=== PATIENT | female | born 1980 | race African-American/Black ===

== ENCOUNTER 2017-02-10 13:09 | Emergency (ER) | payer OTHER ==
[~2017-02-10] VITALS: Ht 167.6 cm; Wt 67.7 kg
[2017-02-10 13:10] VITALS: BP 126/86
--- NOTE | 2017-02-10 15:00 | REP ---
Right hand four views: There are no comparisons. There is no radio-opaque foreign body. Mineralization and joint spaces are normal. There is no fracture or dislocation. There are no calcifications. Impression: Negative right hand. Signed by Cali Laboy MD 02/10/2017 02:51 P
== END 2017-02-10 15:21 | disposition home or self-care (01) ==
LOC: M ED 13:09
DX: S60.511A Abrasion of right hand, initial encounter (principal); S51.811A Laceration without foreign body of right forearm, initial encounter; W20.8XXA Other cause of strike by thrown, projected or falling object, initial encounter; Y92.008 Other place in unspecified non-institutional (private) residence as the place of occurrence of the external cause; Y99.9 Unspecified external cause status; Y93.9 Activity, unspecified; Z88.8 Allergy status to other drugs, medicaments and biological substances

== ENCOUNTER 2017-04-25 17:07 | Emergency (ER) | payer OTHER, SELFPAY ==
[~2017-04-25] VITALS: Ht 167.6 cm; Wt 60.0 kg
[2017-04-25] MEDS ORDERED: levETIRAcetam INJection 1,000 MG in D5W 100 ML IV ONE (18:00)
[2017-04-25 18:07] LABS: CONTROL LINE HCG INT CTR LINE PRESENT
[2017-04-25 18:12] LABS: BASO % 0.3 % (0.0-1.0); EOS % 0.2 % (0.0-3.0); IMMATURE GRANULOCYTE % 0.3 % (0-0); LYMPH # 1.7 10^3/uL (1.5-4.5); LYMPH % 17.6 % (24.0-44.0); MEAN CORPUSCULAR HEMOGLOBIN 33.3 pg (27.0-33.0); MEAN CORPUSCULAR HGB CONC 34.7 g/dl (32.0-36.5); MEAN CORPUSCULAR VOLUME 96.1 fl (80.0-96.0); MONO % 9.9 % (0.0-5.0); NEUTROPHILS # 6.9 10^3/uL (1.8-7.7); NEUTROPHILS % 71.7 % (36.0-66.0); PLATELET COUNT, AUTOMATED 281 10^3/uL (150-450); RED CELL DISTRIBUTION WIDTH 13.2 % (11.5-14.5); WHITE BLOOD COUNT 9.6 10^3/uL (4.0-10.0)
[2017-04-25 18:22] LABS: ALBUMIN 3.8 GM/DL (3.2-5.2); ALBUMIN/GLOBULIN RATIO 1.19 (1.00-1.93); ALKALINE PHOSPHATASE 60 U/L (45-117); ALT/SGPT 16 U/L (12-78); ANION GAP 10 MEQ/L (8-16); AST/SGOT 12 U/L (15-37); BILIRUBIN,DIRECT 0.2 MG/DL (0.0-0.2); BILIRUBIN,TOTAL 0.7 MG/DL (0.2-1.0); BLOOD UREA NITROGEN 9 MG/DL (7-18); CALCIUM LEVEL 9.2 MG/DL (8.5-10.1); CARBON DIOXIDE LEVEL 26 MEQ/L (21-32); CHLORIDE LEVEL 105 MEQ/L (98-107); CREATININE FOR GFR 0.63 MG/DL (0.55-1.02); GLOMERULAR FILTRATION RATE > 60.0 (>60); GLUCOSE, FASTING 81 MG/DL (70-105); SODIUM LEVEL 141 MEQ/L (136-145)
--- NOTE | 2017-04-25 18:50 | REPUSA ---
CT of the head Clinical history: injury. Comparison: 01/16/2015. Technique: Multiple axial CT images were obtained through the head without administration of contrast . Findings: The ventricles and sulci are symmetric bilaterally. There is no evidence of acute hemorrhag e or infarct. There is no midline shift, mass effect, or extra-axial fluid collection. The osseous st ructures are unremarkable. The visualized paranasal sinuses and mastoid air cells are clear. Impression: Negative study.
[2017-04-25 18:51] LABS: POTASSIUM SERUM 2.6 MEQ/L (3.5-5.1)
[2017-04-25] MEDS ORDERED: ISOVUE-370 76% 100ML VIAL (Q9967) As Ordered ONE (19:06)
[2017-04-25] MEDS ORDERED: POTASSIUM CHLORIDE 10 MEQ SR TABLET PO ONE (19:15)
[2017-04-25 19:18] LABS: MAGNESIUM LEVEL 1.8 MG/DL (1.8-2.4)
--- NOTE | 2017-04-25 19:22 | REP ---
REASON: Seizure. COMPARISON: 12/31/2014. FINDINGS: The technique utilized in obtaining the radiograph has magnified the cardiac silhouette and accentuated the interstitial markings. The superior mediastinal structures are midline. The cardiac silhouette is unremarkable in size, shape, and position. The diaphragmatic surfaces of the lungs are regular, and the costophrenic angles are clear. The pulmonary guerrero are clear. The imaged osseous structures are intact. IMPRESSION: There is no acute cardiopulmonary disease. Signed by Humberto Sprague DO 04/25/2017 07:43 P
[2017-04-25] MEDS ORDERED: KCL 10MEQ IN 100ML SWI (KRUN) 10 MEQ in APPROPRIATE DILUENT 1 EA IV ONE ×2 (19:30)
--- NOTE | 2017-04-25 20:00 | REPUSA ---
CT angiogram of the chest Clinical statement: hemoptysis. Technique: Multiple axial CT images were obtained from the thoracic inlet through the upper abdomen a fter a bolus administration of nonionic intravenous contrast. Coronal and sagittal reconstructions we re also obtained. No comparison is available. Findings: The pulmonary arteries are well-opacified with contrast, with no intraluminal filling defec ts to suggest embolism. The thoracic aorta is unremarkable. Thyroid gland is within normal limits. Th ere is no thoracic lymphadenopathy. There are no pericardial or pleural effusions. The lungs are jose r. Limited imaging of the upper abdomen is unremarkable. There are no suspicious osseous lesions. Impression: Unremarkable CT examination of the chest. No evidence of pulmonary embolism.
--- NOTE | 2017-04-25 20:00 | REPUSA ---
CT of the abdomen and pelvis with contrast Clinical statement: hemoptysis. Technique: Multiple axial CT images were obtained from the base of the lungs through the floor of the pelvis utilizing 5 mm axial slices after administration of nonionic intravenous contrast. Coronal an d sagittal reconstructions were also obtained. No comparison is available. Findings: Chest: The visualized lung bases are clear. Abdomen: The liver, spleen, pancreas, kidneys, gallbladder, and adrenal glands are unremarkable. The aorta is within normal limits. There is no evidence of abdominal lymphadenopathy or ascites. Pelvis: The bowel is unremarkable, with no obstructive or inflammatory changes. The appendix is ari l. The urinary bladder is within normal limits. There is a simple left ovarian cyst measuring 2.5 x 1 .4 cm. The other pelvic structures appear grossly intact. There is no evidence of pelvic lymphadenopa thy or ascites. Bones: There are no suspicious osseous abnormalities seen. Impression: 1. The kidneys, renal collecting systems, and urinary bladder appear grossly unremarkable. 2. Simple left ovarian cyst. 3. No obstructive or inflammatory bowel changes.
[2017-04-25] MEDS ORDERED: POTA20TA FT (21:14)
[2017-04-25] MEDS ORDERED: LEVE750XR PO (21:29)
[2017-04-25 21:35] VITALS: BP 94/58
--- NOTE | 2017-04-26 05:48 | ECGEPIP ---
Stationary ECG Study [facility] - ED Test Date: 2017-04-25 Pat Name: OLGA ROSE Department: Room: - Gender: F Metal Cutter: rn : 1980 Requested By: Jing Sargent Order Number: [id number] Reading MD: Filipe Stanford Measurements Intervals [place] Rate: 61 P: 33 IN: 172 QRS: -24 QRSD: 90 T: 17 QT: 427 QTc: 431 Interpretive Statements SINUS RHYTHM BORDERLINE LEFT AXIS DEVIATION SIMILAR TO 01/16/15 Electronically Signed On 04-26-2017 5:47:46 EDT by Filipe Stanford
== END 2017-04-25 21:51 | disposition home or self-care (01) ==
LOC: M ED 17:07
DX: R56.9 Unspecified convulsions (principal); S30.0XXA Contusion of lower back and pelvis, initial encounter; X58.XXXA Exposure to other specified factors, initial encounter; Y92.89 Other specified places as the place of occurrence of the external cause; Y93.89 Activity, other specified; Y99.8 Other external cause status; Z91.19 Patient's noncompliance with other medical treatment and regimen; E87.6 Hypokalemia; Z88.8 Allergy status to other drugs, medicaments and biological substances
CPT/HCPCS: 70450; 71010; 71275; 74177; 80048; 80076; 82550; 82553; 83690; 83735; 84703; 85025; 93005; 96374; 96375; 99284; G0480; J1953; Q9967

== ENCOUNTER → 2017-08-26 | Outpatient (REF) | payer OTHER ==
[2017-08-26 15:01] LABS: LITHIUM LEVEL 0.44 MEQ/L (0.60-1.20)
== END ==
LOC: M LAB REF 13:31
DX: Z51.81 Encounter for therapeutic drug level monitoring (principal); Z79.899 Other long term (current) drug therapy
CPT/HCPCS: 80178

== ENCOUNTER → 2017-09-05 | Outpatient (CLI) | payer OTHER | LOC: M RAD 13:24 | DX: H57.12 Ocular pain, left eye (principal) | CPT/HCPCS: 70200 ==

== ENCOUNTER → 2018-02-24 | Outpatient (REF) | payer OTHER | LOC: M LAB REF 09:33 | DX: K52.9 Noninfective gastroenteritis and colitis, unspecified (principal) | CPT/HCPCS: 87507 ==

== ENCOUNTER 2018-02-26 10:12 | Inpatient (IN) | payer OTHER ==
[2018-02-26] MEDS: NS 1,000 ML IV ×2 (11:18→18:37)
[2018-02-26 11:20] LABS: HEMATOCRIT 36.4 % (36.0-47.0); HEMOGLOBIN 12.4 g/dl (12.0-15.5); MEAN CORPUSCULAR HEMOGLOBIN 30.5 pg (27.0-33.0); MEAN CORPUSCULAR HGB CONC 34.1 g/dl (32.0-36.5); MEAN CORPUSCULAR VOLUME 89.4 fl (80.0-96.0); PLATELET COUNT, AUTOMATED 393 10^3/uL (150-450); RED BLOOD COUNT 4.07 10^6/uL (4.00-5.40); RED CELL DISTRIBUTION WIDTH 12.6 % (11.5-14.5); WHITE BLOOD COUNT 7.1 10^3/uL (4.0-10.0)
[2018-02-26 11:24] LABS: POSITIVE MORPH POS FLAG
[2018-02-26 11:25] LABS: ADD MANUAL DIFFER YES; DIFF SLIDE NUMBER 225
[2018-02-26] MEDS: KETOROLAC 30 MG/ML VIAL (J1885) IV (11:25)
[2018-02-26 11:34] LABS: INR 1.03; PROTHROMBIN TIME 13.6 SECONDS (12.1-14.4)
[2018-02-26 11:36] LABS: CONTROL LINE HCG INT CTR LINE PRESENT; HCG, SERUM QUALITATIVE NEGATIVE (NEGATIVE)
[2018-02-26 11:48] LABS: ALBUMIN 3.3 GM/DL (3.2-5.2); ALKALINE PHOSPHATASE 68 U/L (45-117); ALT/SGPT 17 U/L (12-78); AMYLASE 20 U/L (25-115); ANION GAP 8 MEQ/L (8-16); AST/SGOT 8 U/L (7-37); BILIRUBIN,DIRECT < 0.1 MG/DL (0.0-0.2); BILIRUBIN,TOTAL 0.3 MG/DL (0.2-1.0); BLOOD UREA NITROGEN 6 MG/DL (7-18); CARBON DIOXIDE LEVEL 27 MEQ/L (21-32); CHLORIDE LEVEL 103 MEQ/L (98-107); CREATININE FOR GFR 0.87 MG/DL (0.55-1.30); EOSINOPHILS 5 % (0-5); GLOMERULAR FILTRATION RATE > 60.0 (>60); GLUCOSE, FASTING 96 MG/DL (70-100); LIPASE 56 U/L (73-393); LYMPHOCYTES 21 % (16-52); MONOCYTES 3 % (0-8); NEUTROPHILS 71 % (35-75); PLATELET ESTIMATE NORMAL (NORMAL); POTASSIUM SERUM 3.5 MEQ/L (3.5-5.1); SODIUM LEVEL 138 MEQ/L (136-145); TOTAL PROTEIN 7.4 GM/DL (6.4-8.2)
[2018-02-26 11:50] LABS: LACTIC ACID SEPSIS PROTOCOL 1.8 MMOL/L (0.4-2.0)
[2018-02-26] MEDS: ONDANSETRON 4MG/2ML VIAL (J2405) IV (13:32)
[2018-02-26] MEDS: MORPHINE 4 MG/ML 1ML VIAL/SYRINGE (J2270) IV ×2 (13:32→18:45)
[2018-02-26] MEDS: metroNIDAZOLE 500 MG in APPROPRIATE DILUENT 1 EA IV (17:30)
[2018-02-26] MEDS ORDERED: METOCLOPRAMIDE 10 MG TAB PO (18:00)
[2018-02-26] MEDS ORDERED: MIRALAX POWDER 255 GM BTL (POLYETHYLENE GLYCOL) PO (18:15)
[2018-02-26] MEDS: PRAZOSIN 1 MG CAP PO (21:00)
[2018-02-26] MEDS: MIRALAX POWDER 255 GM BTL (POLYETHYLENE GLYCOL) PO (22:00)
[2018-02-26] MEDS: OLANZapine 5 MG TAB PO (22:10)
[2018-02-26] MEDS: POTASSIUM CHLORIDE 10 MEQ SR TABLET PO (22:13)
[2018-02-26] MEDS: hydrOXYzine 50 MG TAB PO (22:15)
[2018-02-26] MEDS: levETIRAcetam 250MG TABLET (KEPPRA) PO (22:15)
[2018-02-26] MEDS: CIPROFLOXACIN 400 MG in APPROPRIATE DILUENT 1 EA IV (22:20)
[2018-02-27] MEDS: metroNIDAZOLE 500 MG in APPROPRIATE DILUENT 1 EA IV ×3 (02:50→17:45)
[2018-02-27] MEDS: MORPHINE 4 MG/ML 1ML VIAL/SYRINGE (J2270) IV ×2 (06:24→13:35)
[2018-02-27 07:38] LABS: HEMATOCRIT 30.5 % (36.0-47.0); MEAN CORPUSCULAR HEMOGLOBIN 30.3 pg (27.0-33.0); MEAN CORPUSCULAR HGB CONC 32.8 g/dl (32.0-36.5); MEAN CORPUSCULAR VOLUME 92.4 fl (80.0-96.0); PLATELET COUNT, AUTOMATED 346 10^3/uL (150-450); RED CELL DISTRIBUTION WIDTH 12.8 % (11.5-14.5); WHITE BLOOD COUNT 6.4 10^3/uL (4.0-10.0)
[2018-02-27 07:50] LABS: ANION GAP 5 MEQ/L (8-16); BLOOD UREA NITROGEN 7 MG/DL (7-18); CALCIUM LEVEL 8.1 MG/DL (8.5-10.1); CARBON DIOXIDE LEVEL 27 MEQ/L (21-32); CHLORIDE LEVEL 107 MEQ/L (98-107); CREATININE FOR GFR 0.77 MG/DL (0.55-1.30); GLOMERULAR FILTRATION RATE > 60.0 (>60); GLUCOSE, FASTING 85 MG/DL (70-100); POTASSIUM SERUM 3.7 MEQ/L (3.5-5.1); SODIUM LEVEL 139 MEQ/L (136-145)
[2018-02-27] MEDS: OMEPRAZOLE 20 MG CAP PO (08:55)
[2018-02-27] MEDS: CIPROFLOXACIN 400 MG in APPROPRIATE DILUENT 1 EA IV ×2 (08:55→21:08)
[2018-02-27] MEDS: levETIRAcetam 250MG TABLET (KEPPRA) PO ×2 (08:55→21:11)
[2018-02-27] MEDS: NS 1,000 ML IV (08:56)
[2018-02-27] MEDS: POTASSIUM CHLORIDE 10 MEQ SR TABLET PO ×2 (08:56→21:11)
[2018-02-27] MEDS ORDERED: levETIRAcetam 250MG TABLET (KEPPRA) PO (09:00)
[2018-02-27] MEDS ORDERED: ENOXAPARIN 40 MG/0.4 ML SYRINGE (J1650) SC (09:00)
[2018-02-27] MEDS ORDERED: LIDOCAINE 2% INJ 100 MG/5 ML SDV (FOR ANES.) As Ordered ×2 (10:55→12:21)
[2018-02-27] MEDS ORDERED: PROPOFOL 200 MG/20 ML VIAL As Ordered ×2 (10:55→12:21)
[2018-02-27] MEDS ORDERED: FLEET ENEMA PR (12:00)
[2018-02-27 13:11] LABS: HEMATOCRIT 30.1 % (36.0-47.0); HEMOGLOBIN 9.8 g/dl (12.0-15.5); MEAN CORPUSCULAR HEMOGLOBIN 29.8 pg (27.0-33.0); MEAN CORPUSCULAR HGB CONC 32.6 g/dl (32.0-36.5); MEAN CORPUSCULAR VOLUME 91.5 fl (80.0-96.0); PLATELET COUNT, AUTOMATED 325 10^3/uL (150-450); RED BLOOD COUNT 3.29 10^6/uL (4.00-5.40); RED CELL DISTRIBUTION WIDTH 12.8 % (11.5-14.5); WHITE BLOOD COUNT 5.4 10^3/uL (4.0-10.0)
[2018-02-27] MEDS: MESALAMINE 400 MG CAPSULE DELAYED RELEASE (DELZICOL) PO ×2 (16:31→21:10)
[2018-02-27 18:34] LABS: HEMATOCRIT 31.9 % (36.0-47.0); HEMOGLOBIN 10.3 g/dl (12.0-15.5); MEAN CORPUSCULAR HEMOGLOBIN 30.1 pg (27.0-33.0); MEAN CORPUSCULAR HGB CONC 32.3 g/dl (32.0-36.5); MEAN CORPUSCULAR VOLUME 93.3 fl (80.0-96.0); PLATELET COUNT, AUTOMATED 384 10^3/uL (150-450); RED BLOOD COUNT 3.42 10^6/uL (4.00-5.40); WHITE BLOOD COUNT 6.6 10^3/uL (4.0-10.0)
[2018-02-27 18:54] LABS: ERYTHROCYTE SEDIMENTATION RATE 43 mm/hr (0-20)
[2018-02-27 19:20] LABS: C REACTIVE PROTEIN QUANTITATIV 8.11 MG/DL (0.00-0.30)
[2018-02-27] MEDS: MESALAMINE 1,000 MG SUPP PR ×2 (21:00→21:11)
[2018-02-27] MEDS: PRAZOSIN 1 MG CAP PO (21:00)
[2018-02-27] MEDS: OLANZapine 5 MG TAB PO (21:11)
[2018-02-28 00:27] LABS: HEMATOCRIT 30.6 % (36.0-47.0); HEMOGLOBIN 10.1 g/dl (12.0-15.5); MEAN CORPUSCULAR VOLUME 90.8 fl (80.0-96.0); PLATELET COUNT, AUTOMATED 373 10^3/uL (150-450); RED BLOOD COUNT 3.37 10^6/uL (4.00-5.40); RED CELL DISTRIBUTION WIDTH 12.6 % (11.5-14.5); WHITE BLOOD COUNT 6.4 10^3/uL (4.0-10.0)
[2018-02-28] MEDS: hydrOXYzine 50 MG TAB PO ×2 (02:26→21:03)
[2018-02-28] MEDS: NS 1,000 ML IV ×2 (02:48→21:04)
[2018-02-28] MEDS: metroNIDAZOLE 500 MG in APPROPRIATE DILUENT 1 EA IV ×3 (02:48→17:00)
[2018-02-28 06:00] LABS: HEMATOCRIT 29.3 % (36.0-47.0); HEMOGLOBIN 9.6 g/dl (12.0-15.5); MEAN CORPUSCULAR HEMOGLOBIN 30.4 pg (27.0-33.0); MEAN CORPUSCULAR HGB CONC 32.8 g/dl (32.0-36.5); MEAN CORPUSCULAR VOLUME 92.7 fl (80.0-96.0); PLATELET COUNT, AUTOMATED 355 10^3/uL (150-450); RED BLOOD COUNT 3.16 10^6/uL (4.00-5.40); RED CELL DISTRIBUTION WIDTH 12.8 % (11.5-14.5); WHITE BLOOD COUNT 5.6 10^3/uL (4.0-10.0)
[2018-02-28 06:17] LABS: ANION GAP 6 MEQ/L (8-16); BLOOD UREA NITROGEN 3 MG/DL (7-18); CALCIUM LEVEL 8.2 MG/DL (8.5-10.1); CARBON DIOXIDE LEVEL 28 MEQ/L (21-32); CHLORIDE LEVEL 110 MEQ/L (98-107); CREATININE FOR GFR 0.65 MG/DL (0.55-1.30); GLOMERULAR FILTRATION RATE > 60.0 (>60); GLUCOSE, FASTING 93 MG/DL (70-100); POTASSIUM SERUM 4.1 MEQ/L (3.5-5.1); SODIUM LEVEL 144 MEQ/L (136-145)
[2018-02-28] MEDS: MORPHINE 4 MG/ML 1ML VIAL/SYRINGE (J2270) IV ×2 (08:54→18:12)
[2018-02-28] MEDS: MESALAMINE 400 MG CAPSULE DELAYED RELEASE (DELZICOL) PO ×3 (09:45→20:52)
[2018-02-28] MEDS: OMEPRAZOLE 20 MG CAP PO (09:46)
[2018-02-28] MEDS: levETIRAcetam 250MG TABLET (KEPPRA) PO ×2 (09:46→20:50)
[2018-02-28] MEDS: POTASSIUM CHLORIDE 10 MEQ SR TABLET PO ×2 (09:46→20:51)
[2018-02-28] MEDS: CIPROFLOXACIN 400 MG in APPROPRIATE DILUENT 1 EA IV ×2 (09:47→20:53)
[2018-02-28] MEDS: predniSONE 50 MG TAB PO (12:19)
[2018-02-28] MEDS ORDERED: NS 500 ML IV (15:15)
[2018-02-28] MEDS ORDERED: MIDODRINE 2.5 MG TAB PO (16:00)
[2018-02-28] MEDS: ONDANSETRON 4MG/2ML VIAL (J2405) IV (20:50)
[2018-02-28] MEDS: OLANZapine 5 MG TAB PO (20:51)
[2018-02-28] MEDS: PRAZOSIN 1 MG CAP PO (21:00)
[2018-02-28] MEDS: MESALAMINE 1,000 MG SUPP PR (21:00)
[2018-03-01] MEDS: metroNIDAZOLE 500 MG in APPROPRIATE DILUENT 1 EA IV ×3 (02:43→17:06)
[2018-03-01] MEDS: NS 500 ML IV (05:00)
[2018-03-01] MEDS: MORPHINE 4 MG/ML 1ML VIAL/SYRINGE (J2270) IV ×3 (05:24→20:23)
[2018-03-01 06:35] LABS: HEMATOCRIT 27.6 % (36.0-47.0); MEAN CORPUSCULAR HEMOGLOBIN 30.5 pg (27.0-33.0); MEAN CORPUSCULAR HGB CONC 32.6 g/dl (32.0-36.5); MEAN CORPUSCULAR VOLUME 93.6 fl (80.0-96.0); PLATELET COUNT, AUTOMATED 358 10^3/uL (150-450); RED BLOOD COUNT 2.95 10^6/uL (4.00-5.40); RED CELL DISTRIBUTION WIDTH 12.8 % (11.5-14.5); WHITE BLOOD COUNT 6.8 10^3/uL (4.0-10.0)
[2018-03-01 06:53] LABS: ANION GAP 5 MEQ/L (8-16); BLOOD UREA NITROGEN 2 MG/DL (7-18); CALCIUM LEVEL 7.7 MG/DL (8.5-10.1); CARBON DIOXIDE LEVEL 26 MEQ/L (21-32); CHLORIDE LEVEL 114 MEQ/L (98-107); CREATININE FOR GFR 0.57 MG/DL (0.55-1.30); GLOMERULAR FILTRATION RATE > 60.0 (>60); GLUCOSE, FASTING 121 MG/DL (70-100); POTASSIUM SERUM 4.2 MEQ/L (3.5-5.1); SODIUM LEVEL 145 MEQ/L (136-145)
[2018-03-01] MEDS: CIPROFLOXACIN 400 MG in APPROPRIATE DILUENT 1 EA IV ×2 (08:41→20:24)
[2018-03-01] MEDS: predniSONE 50 MG TAB PO (08:41)
[2018-03-01] MEDS: POTASSIUM CHLORIDE 10 MEQ SR TABLET PO ×2 (08:41→20:25)
[2018-03-01] MEDS: levETIRAcetam 250MG TABLET (KEPPRA) PO ×2 (08:41→20:24)
[2018-03-01] MEDS: MESALAMINE 400 MG CAPSULE DELAYED RELEASE (DELZICOL) PO ×3 (08:41→20:23)
[2018-03-01] MEDS: OMEPRAZOLE 20 MG CAP PO (08:41)
[2018-03-01] MEDS: NS 1,000 ML IV (09:30)
[2018-03-01] MEDS: hydrOXYzine 50 MG TAB PO (20:24)
[2018-03-01] MEDS: OLANZapine 5 MG TAB PO (20:24)
[2018-03-01] MEDS: MESALAMINE 1,000 MG SUPP PR (20:25)
[2018-03-01] MEDS: PRAZOSIN 1 MG CAP PO (21:00)
[2018-03-02] MEDS: metroNIDAZOLE 500 MG in APPROPRIATE DILUENT 1 EA IV ×3 (02:09→17:38)
[2018-03-02 06:15] LABS: HEMATOCRIT 30.2 % (36.0-47.0); HEMOGLOBIN 9.9 g/dl (12.0-15.5); MEAN CORPUSCULAR HEMOGLOBIN 29.9 pg (27.0-33.0); MEAN CORPUSCULAR HGB CONC 32.8 g/dl (32.0-36.5); MEAN CORPUSCULAR VOLUME 91.2 fl (80.0-96.0); PLATELET COUNT, AUTOMATED 427 10^3/uL (150-450); RED BLOOD COUNT 3.31 10^6/uL (4.00-5.40); RED CELL DISTRIBUTION WIDTH 12.9 % (11.5-14.5); WHITE BLOOD COUNT 8.1 10^3/uL (4.0-10.0)
[2018-03-02 06:27] LABS: ANION GAP 7 MEQ/L (8-16); BLOOD UREA NITROGEN 3 MG/DL (7-18); CALCIUM LEVEL 8.4 MG/DL (8.5-10.1); CARBON DIOXIDE LEVEL 25 MEQ/L (21-32); CHLORIDE LEVEL 114 MEQ/L (98-107); CREATININE FOR GFR 0.62 MG/DL (0.55-1.30); GLOMERULAR FILTRATION RATE > 60.0 (>60); GLUCOSE, FASTING 87 MG/DL (70-100); POTASSIUM SERUM 3.7 MEQ/L (3.5-5.1); SODIUM LEVEL 146 MEQ/L (136-145)
[2018-03-02] MEDS: NS 1,000 ML IV (07:23)
[2018-03-02 07:50] LABS: C REACTIVE PROTEIN QUANTITATIV 1.56 MG/DL (0.00-0.30)
[2018-03-02] MEDS: CIPROFLOXACIN 400 MG in APPROPRIATE DILUENT 1 EA IV ×2 (09:27→20:44)
[2018-03-02] MEDS: POTASSIUM CHLORIDE 10 MEQ SR TABLET PO ×2 (09:28→20:44)
[2018-03-02] MEDS: methylPREDNISolone INJ 125 MG/2 ML VIAL (J2930) IV (09:28)
[2018-03-02] MEDS: OMEPRAZOLE 20 MG CAP PO (09:28)
[2018-03-02] MEDS: levETIRAcetam 250MG TABLET (KEPPRA) PO ×2 (09:28→20:44)
[2018-03-02] MEDS: MORPHINE 4 MG/ML 1ML VIAL/SYRINGE (J2270) IV ×3 (09:42→22:06)
[2018-03-02] MEDS: MESALAMINE 400 MG CAPSULE DELAYED RELEASE (DELZICOL) PO ×3 (09:43→20:44)
[2018-03-02 11:25] LABS: HEPATITIS B SURFACE ANTIBODY POSITIVE (POSITIVE)
[2018-03-02 11:34] LABS: HEPATITIS B SURFACE ANTIGEN NEGATIVE (NEGATIVE)
[2018-03-02] MEDS: MESALAMINE 1,000 MG SUPP PR (20:36)
[2018-03-02] MEDS: PRAZOSIN 1 MG CAP PO ×2 (20:36→20:44)
[2018-03-02] MEDS: OLANZapine 5 MG TAB PO (20:44)
[2018-03-02] MEDS: hydrOXYzine 50 MG TAB PO (20:45)
[2018-03-03 00:07] LABS: ANTI-SACCHAROMYCES CEREV. IgA <20.0 Units (0.0-24.9); ANTI-SACCHAROMYCES CEREV. IgG <20.0 Units (0.0-24.9); HEPATITIS B CORE ANTIBODY IGG Negative (Negative)
[2018-03-03] MEDS: metroNIDAZOLE 500 MG in APPROPRIATE DILUENT 1 EA IV ×4 (02:49→17:58)
[2018-03-03 06:28] LABS: HEMATOCRIT 26.7 % (36.0-47.0); HEMOGLOBIN 8.9 g/dl (12.0-15.5); MEAN CORPUSCULAR HEMOGLOBIN 30.2 pg (27.0-33.0); MEAN CORPUSCULAR HGB CONC 33.3 g/dl (32.0-36.5); MEAN CORPUSCULAR VOLUME 90.5 fl (80.0-96.0); PLATELET COUNT, AUTOMATED 422 10^3/uL (150-450); RED BLOOD COUNT 2.95 10^6/uL (4.00-5.40); RED CELL DISTRIBUTION WIDTH 13.1 % (11.5-14.5); WHITE BLOOD COUNT 9.6 10^3/uL (4.0-10.0)
[2018-03-03 06:50] LABS: ANION GAP 5 MEQ/L (8-16); BLOOD UREA NITROGEN 2 MG/DL (7-18); CALCIUM LEVEL 7.9 MG/DL (8.5-10.1); CARBON DIOXIDE LEVEL 29 MEQ/L (21-32); CHLORIDE LEVEL 113 MEQ/L (98-107); GLOMERULAR FILTRATION RATE > 60.0 (>60); GLUCOSE, FASTING 84 MG/DL (70-100); POTASSIUM SERUM 3.7 MEQ/L (3.5-5.1); SODIUM LEVEL 147 MEQ/L (136-145)
[2018-03-03] MEDS: methylPREDNISolone INJ 125 MG/2 ML VIAL (J2930) IV (09:10)
[2018-03-03] MEDS: CIPROFLOXACIN 400 MG in APPROPRIATE DILUENT 1 EA IV (09:10)
[2018-03-03] MEDS: MORPHINE 4 MG/ML 1ML VIAL/SYRINGE (J2270) IV ×2 (09:11→16:07)
[2018-03-03] MEDS: OMEPRAZOLE 20 MG CAP PO (09:11)
[2018-03-03] MEDS: MESALAMINE 400 MG CAPSULE DELAYED RELEASE (DELZICOL) PO ×3 (09:11→22:02)
[2018-03-03] MEDS: levETIRAcetam 250MG TABLET (KEPPRA) PO ×2 (09:12→22:03)
[2018-03-03] MEDS: POTASSIUM CHLORIDE 10 MEQ SR TABLET PO ×2 (09:12→22:02)
[2018-03-03] MEDS: CIPROFLOXACIN 500 MG TAB PO (18:24)
[2018-03-03] MEDS: predniSONE 20 MG TAB PO ×2 (18:25→22:04)
[2018-03-03] MEDS: MESALAMINE 1,000 MG SUPP PR (21:00)
[2018-03-03] MEDS: PRAZOSIN 1 MG CAP PO (21:00)
[2018-03-03] MEDS: OLANZapine 5 MG TAB PO (22:03)
[2018-03-03] MEDS: metroNIDAZOLE (FLAGYL) 500 MG TAB PO (22:04)
[2018-03-03] MEDS: hydrOXYzine 50 MG TAB PO (22:46)
[2018-03-04 00:06] LABS: ANCA-ATYPICAL <1:20 titer (Neg:<1:20); CYTOPLASMIC NEUTROP AB ANCA-C <1:20 titer (Neg:<1:20); PERINUCLEAR AB ANCA-P <1:20 titer (Neg:<1:20); QUANTIFERON GOLD TB Negative (Negative); TB Test (QFT) Antigen 0.03 IU/mL (.); TB Test (QFT) Antigen Minus Ni <0.01 IU/mL (.); TB Test (QFT) Mitogen 9.98 IU/mL (.); TB Test (QFT) Nil 0.09 IU/mL (.)
[2018-03-04] MEDS: CIPROFLOXACIN 500 MG TAB PO (06:01)
[2018-03-04] MEDS: metroNIDAZOLE (FLAGYL) 500 MG TAB PO (06:01)
[2018-03-04 06:19] LABS: HEMATOCRIT 29.4 % (36.0-47.0); HEMOGLOBIN 9.8 g/dl (12.0-15.5); MEAN CORPUSCULAR HEMOGLOBIN 30.2 pg (27.0-33.0); MEAN CORPUSCULAR HGB CONC 33.3 g/dl (32.0-36.5); MEAN CORPUSCULAR VOLUME 90.7 fl (80.0-96.0); PLATELET COUNT, AUTOMATED 503 10^3/uL (150-450); RED BLOOD COUNT 3.24 10^6/uL (4.00-5.40); RED CELL DISTRIBUTION WIDTH 13.2 % (11.5-14.5); WHITE BLOOD COUNT 11.8 10^3/uL (4.0-10.0)
[2018-03-04 06:33] LABS: ANION GAP 6 MEQ/L (8-16); BLOOD UREA NITROGEN 7 MG/DL (7-18); C REACTIVE PROTEIN QUANTITATIV 0.46 MG/DL (0.00-0.30); CARBON DIOXIDE LEVEL 28 MEQ/L (21-32); CHLORIDE LEVEL 113 MEQ/L (98-107); CREATININE FOR GFR 0.64 MG/DL (0.55-1.30); GLOMERULAR FILTRATION RATE > 60.0 (>60); GLUCOSE, FASTING 138 MG/DL (70-100); POTASSIUM SERUM 4.1 MEQ/L (3.5-5.1); SODIUM LEVEL 147 MEQ/L (136-145)
[2018-03-04] MEDS: ACETAMINOPHEN 325 MG TAB PO (09:42)
[2018-03-04] MEDS: predniSONE 20 MG TAB PO (09:43)
[2018-03-04] MEDS: POTASSIUM CHLORIDE 10 MEQ SR TABLET PO (09:43)
[2018-03-04] MEDS: OMEPRAZOLE 20 MG CAP PO (09:43)
[2018-03-04] MEDS: MESALAMINE 400 MG CAPSULE DELAYED RELEASE (DELZICOL) PO (09:43)
[2018-03-04] MEDS: levETIRAcetam 250MG TABLET (KEPPRA) PO (09:43)
== END 2018-03-04 12:17 | DRG 249 ==
LOC: M ED 10:12 → M ED INP 17:49 → M MSPAV 23:15
PROC: 0DBM8ZX Excision of Descending Colon, Via Natural or Artificial Opening Endoscopic, Diagnostic (ICD-10-PCS; principal; 2018-02-27 12:05)
PROC: 0DBP8ZX Excision of Rectum, Via Natural or Artificial Opening Endoscopic, Diagnostic (ICD-10-PCS; 2018-02-27 12:05)
DX: K52.9 Noninfective gastroenteritis and colitis, unspecified (principal); F17.210 Nicotine dependence, cigarettes, uncomplicated; F43.10 Post-traumatic stress disorder, unspecified; G40.909 Epilepsy, unspecified, not intractable, without status epilepticus; G47.00 Insomnia, unspecified; K21.9 Gastro-esophageal reflux disease without esophagitis; F51.4 Sleep terrors [night terrors]; Z79.899 Other long term (current) drug therapy; Z88.8 Allergy status to other drugs, medicaments and biological substances

== ENCOUNTER 2018-03-09 11:03 | Emergency (ER) | payer OTHER ==
[2018-03-09 12:12] LABS: BASO % 0.4 % (0.0-1.0); EOS # 0.2 10^3/uL (0.0-0.50); EOS % 2.3 % (0.0-3.0); HEMATOCRIT 30.8 % (36.0-47.0); HEMOGLOBIN 10.2 g/dl (12.0-15.5); IMMATURE GRANULOCYTE % 0.7 % (0-3.0); LYMPH # 3.5 10^3/uL (1.5-4.5); MEAN CORPUSCULAR HEMOGLOBIN 30.2 pg (27.0-33.0); MEAN CORPUSCULAR HGB CONC 33.1 g/dl (32.0-36.5); MEAN CORPUSCULAR VOLUME 91.1 fl (80.0-96.0); MONO # 0.8 10^3/uL (0.0-0.8); MONO % 9.7 % (0.0-5.0); NEUTROPHILS # 3.9 10^3/uL (1.8-7.7); NEUTROPHILS % 45.9 % (36.0-66.0); PLATELET COUNT, AUTOMATED 417 10^3/uL (150-450); RED BLOOD COUNT 3.38 10^6/uL (4.00-5.40); RED CELL DISTRIBUTION WIDTH 14.1 % (11.5-14.5); WHITE BLOOD COUNT 8.5 10^3/uL (4.0-10.0)
[2018-03-09 12:22] LABS: INR 0.94; PROTHROMBIN TIME 12.7 SECONDS (12.1-14.4)
[2018-03-09 12:23] LABS: PARTIAL THROMBOPLASTIN TIME 31.1 SECONDS (25.4-37.6)
[2018-03-09] MEDS: MECLIZINE 25 MG TABLET PO (12:24)
[2018-03-09] MEDS: ASPIRIN 81 MG CHEW TABLET PO (12:24)
[2018-03-09 12:32] LABS: CONTROL LINE HCG INT CTR LINE PRESENT; HCG, SERUM QUALITATIVE NEGATIVE (NEGATIVE)
[2018-03-09 12:41] LABS: ALBUMIN 2.9 GM/DL (3.2-5.2); ALBUMIN/GLOBULIN RATIO 0.81 (1.00-1.93); ALKALINE PHOSPHATASE 49 U/L (45-117); ALT/SGPT 21 U/L (12-78); ANION GAP 8 MEQ/L (8-16); AST/SGOT 9 U/L (7-37); BILIRUBIN,DIRECT < 0.1 MG/DL (0.0-0.2); BILIRUBIN,TOTAL 0.3 MG/DL (0.2-1.0); BLOOD UREA NITROGEN 10 MG/DL (7-18); CALCIUM LEVEL 8.3 MG/DL (8.5-10.1); CARBON DIOXIDE LEVEL 29 MEQ/L (21-32); CHLORIDE LEVEL 108 MEQ/L (98-107); CK-MB VALUE MASS < 1.0 NG/ML (<3.6); CPK CREATINE PHOSPHOKINASE 45 U/L (26-192); GLOMERULAR FILTRATION RATE > 60.0 (>60); GLUCOSE, FASTING 106 MG/DL (70-100); LIPASE 151 U/L (73-393); MB/CK RELATIVE INDEX 2.22 (< OR =4); POTASSIUM SERUM 3.1 MEQ/L (3.5-5.1); SODIUM LEVEL 145 MEQ/L (136-145); TOTAL PROTEIN 6.5 GM/DL (6.4-8.2); TROPONIN I < 0.02 NG/ML (< 0.10)
[2018-03-09] MEDS: POTASSIUM CHLORIDE 10 MEQ SR TABLET PO (13:34)
== END 2018-03-09 13:50 | disposition home or self-care (01) ==
LOC: M ED 11:03
DX: H81.10 Benign paroxysmal vertigo, unspecified ear (principal); R94.31 Abnormal electrocardiogram [ECG] [EKG]; Z82.49 Family history of ischemic heart disease and other diseases of the circulatory system; Z88.8 Allergy status to other drugs, medicaments and biological substances; Z79.899 Other long term (current) drug therapy
CPT/HCPCS: 71046

== ENCOUNTER → 2018-09-17 | Outpatient (CLI) | payer MEDICAID, SELFPAY ==
[~2018-09-17] MED LIST: CIPR-249 PO; DELZ400C PO; FLAG500T PO; HYDR-643 PO; IBUP200C25 PO; K-TA1TAB PO; KEPP1TAB PO; KLOR20TA42 FT; LEVE750T5 PO; LEVE750XR PO; MECL-68 PO; MESA50SU PR; OLAN15TA PO; OMEP40CA2 PO; PRAZ5CAP PO; PRED10TA2 PO
== END ==
LOC: M OUTALCOH 12:29
PROVIDERS: ATTEND Psychiatry & Neurology Psychiatry
DX: Z03.89 Encounter for observation for other suspected diseases and conditions ruled out (principal)

== ENCOUNTER 2018-09-29 07:53 | Outpatient (RCR) | payer MEDICAID | END 2018-10-18 | LOC: M OUTALCOH 07:53 | PROVIDERS: ATTEND Psychiatry & Neurology Psychiatry | DX: Z03.89 Encounter for observation for other suspected diseases and conditions ruled out (principal) ==

== ENCOUNTER → 2018-11-09 | Outpatient (CLI) | payer MEDICAID | LOC: M OUTALCOH 13:09 | PROVIDERS: ATTEND Psychiatry & Neurology Psychiatry | DX: Z03.89 Encounter for observation for other suspected diseases and conditions ruled out (principal) ==

== ENCOUNTER 2018-11-30 11:27 | Emergency (ER) | payer MEDICAID ==
[~2018-11-30] VITALS: Ht 165.1 cm; Wt 65.9 kg
[2018-11-30] MEDS: IPRATROPIUM 0.5MG/ALBUTEROL 2.5MG INH SOL UD 3ML (DUONEB)(J7620) NEB PRN ×3 (12:15→13:16)
--- NOTE | 2018-11-30 12:43 | REP ---
Chest x-ray: Two views. History: Wheezing, productive cough. . Comparison study: March 09, 2018 . Findings: The lungs are well inflated and free of infiltrate. The pleural angles are sharp. The heart size is normal. Pulmonary vasculature is not increased. No significant bony abnormality is seen. Impression: Negative chest x-ray. Electronically Signed by Rafael Gloria MD 11/30/2018 12:35 P
[2018-11-30] MEDS ORDERED: predniSONE 20 MG TAB PO ONE (13:15)
[2018-11-30] MEDS ORDERED: PROAAER10 INH (13:46)
[2018-11-30] MEDS ORDERED: PRED10TA2 PO (13:47)
[2018-11-30 13:48] VITALS: BP 103/61
== END 2018-11-30 13:56 | disposition home or self-care (01) ==
LOC: M ED 11:27
DX: J06.9 Acute upper respiratory infection, unspecified (principal); R56.9 Unspecified convulsions; D64.9 Anemia, unspecified; F43.10 Post-traumatic stress disorder, unspecified; F10.20 Alcohol dependence, uncomplicated; F31.9 Bipolar disorder, unspecified; K52.9 Noninfective gastroenteritis and colitis, unspecified; Z88.8 Allergy status to other drugs, medicaments and biological substances; Z79.899 Other long term (current) drug therapy

== ENCOUNTER → 2018-12-18 | Outpatient (RCR) | payer MEDICAID ==
[~2018-12-18] MED LIST changes: +PROAAER10 INH
== END ==
LOC: M OUTALCOH 12-09 08:56
PROVIDERS: ATTEND Psychiatry & Neurology Psychiatry
DX: F10.10 Alcohol abuse, uncomplicated (principal); Z03.89 Encounter for observation for other suspected diseases and conditions ruled out; Z72.0 Tobacco use

== ENCOUNTER 2019-01-08 11:27 | Outpatient (RCR) | payer MEDICAID | END 2019-01-17 | LOC: M OUTALCOH 11:27 | PROVIDERS: ATTEND Psychiatry & Neurology Psychiatry | DX: F10.10 Alcohol abuse, uncomplicated (principal); Z03.89 Encounter for observation for other suspected diseases and conditions ruled out; Z72.0 Tobacco use ==

== ENCOUNTER 2019-02-11 11:00 | Outpatient (RCR) | payer MEDICAID | END 2019-02-17 | LOC: M OUTALCOH 11:00 | PROVIDERS: ATTEND Psychiatry & Neurology Psychiatry | DX: F10.10 Alcohol abuse, uncomplicated (principal); Z72.0 Tobacco use ==

== ENCOUNTER 2019-03-19 08:24 | Outpatient (RCR) | payer MEDICAID | END 2019-03-20 | LOC: M OUTALCOH 08:24 | PROVIDERS: ATTEND Psychiatry & Neurology Psychiatry | DX: F10.20 Alcohol dependence, uncomplicated (principal); Z72.0 Tobacco use ==

== ENCOUNTER 2019-04-16 10:00 | Outpatient (RCR) | payer MEDICAID | END 2019-04-19 | LOC: M OUTALCOH 10:00 | PROVIDERS: ATTEND Psychiatry & Neurology Psychiatry | DX: F10.20 Alcohol dependence, uncomplicated (principal); Z72.0 Tobacco use ==

== ENCOUNTER 2019-05-14 13:00 | Outpatient (RCR) | payer MEDICAID ==
[~2019-05-14 13:00] MED LIST changes: -OMEP40CA2 PO; +OMEP40CA97 PO
== END 2019-05-20 ==
LOC: M OUTALCOH 13:00
PROVIDERS: ATTEND Psychiatry & Neurology Psychiatry
DX: Z03.89 Encounter for observation for other suspected diseases and conditions ruled out (principal); F10.20 Alcohol dependence, uncomplicated; Z72.0 Tobacco use

== ENCOUNTER 2019-06-09 09:06 | Outpatient (RCR) | payer MEDICAID | END 2019-06-19 | LOC: M OUTALCOH 09:06 | PROVIDERS: ATTEND Psychiatry & Neurology Psychiatry | DX: Z03.89 Encounter for observation for other suspected diseases and conditions ruled out (principal); F10.20 Alcohol dependence, uncomplicated; Z72.0 Tobacco use ==

== ENCOUNTER → 2019-07-20 | Outpatient (RCR) | payer MEDICAID | LOC: M OUTALCOH 06-23 13:08 | PROVIDERS: ATTEND Psychiatry & Neurology Psychiatry | DX: Z03.89 Encounter for observation for other suspected diseases and conditions ruled out (principal); F10.20 Alcohol dependence, uncomplicated; Z72.0 Tobacco use ==

== ENCOUNTER 2019-08-04 12:47 | Outpatient (RCR) | payer MEDICAID ==
[~2019-08-04 12:47] MED LIST changes: -MECL-68 PO; +MECL1TAB31 PO
== END 2019-08-20 ==
LOC: M OUTALCOH 12:47
PROVIDERS: ATTEND Psychiatry & Neurology Psychiatry
DX: F10.20 Alcohol dependence, uncomplicated (principal); Z03.89 Encounter for observation for other suspected diseases and conditions ruled out; Z72.0 Tobacco use

== ENCOUNTER 2019-08-15 21:50 | Emergency (ER) | payer MEDICAID, OTHER ==
[~2019-08-15] VITALS: Ht 167.6 cm; Wt 67.8 kg
[2019-08-15] MEDS ORDERED: KETOROLAC TROMETHAMINE 10 MG TAB PO ONE (22:30)
[2019-08-15 23:18] VITALS: BP 117/73
--- NOTE | 2019-08-16 01:19 | REP ---
Clinical: Pain. Trauma. Technique: Frontal view of the pelvis with neutral and frog lateral views of the right hip.. Findings: Frontal view of the pelvis is unremarkable. Right hip appears normal. No acute fracture dislocation. No subcutaneous emphysema. No foreign body. No arthritic degenerative changes. Impression: Age-appropriate pelvis and right hip radiographs. Electronically Signed by Bravo Brooks MD 08/16/2019 01:11 A
== END 2019-08-15 23:20 | disposition home or self-care (01) ==
LOC: M ED 21:50
DX: S70.11XA Contusion of right thigh, initial encounter (principal); W01.0XXA Fall on same level from slipping, tripping and stumbling without subsequent striking against object, initial encounter; Y92.9 Unspecified place or not applicable; Y93.01 Activity, walking, marching and hiking; Y99.9 Unspecified external cause status; Z79.51 Long term (current) use of inhaled steroids; Z79.899 Other long term (current) drug therapy; Z88.8 Allergy status to other drugs, medicaments and biological substances

== ENCOUNTER 2019-10-11 19:47 | Emergency (ER) | payer OTHER ==
[~2019-10-11] VITALS: Ht 167.6 cm; Wt 63.6 kg
[2019-10-11] MEDS ORDERED: IBUPROFEN 800 MG TAB PO ONE (20:45)
[2019-10-11] MEDS ORDERED: ACETAMINOPHEN TAB 650MG DOSE (2X325MG) PO ONE (20:45)
[2019-10-11 21:39] LABS: INFLUENZA A AMPLIFICATION NEGATIVE (NEGATIVE); INFLUENZA B AMPLIFICATION NEGATIVE (NEGATIVE)
[2019-10-11 22:37] VITALS: BP 100/59
--- NOTE | 2019-10-12 07:54 | REP ---
Clinical: Chest pain and shortness of breath . Comparison: 11/30/2018 . Findings: The mediastinum and cardiac silhouette are stable and within normal limits for portable technique. The lung guerrero are clear without acute consolidation, effusion, or pneumothorax. Skeletal structures are intact. Impression: No acute cardiopulmonary process appreciated. Electronically Signed by Bravo rBooks MD 10/12/2019 07:46 A
== END 2019-10-11 22:38 | disposition home or self-care (01) ==
LOC: M ED 19:47
DX: J06.9 Acute upper respiratory infection, unspecified (principal); R56.9 Unspecified convulsions; K50.90 Crohn's disease, unspecified, without complications; Z79.899 Other long term (current) drug therapy; Z88.8 Allergy status to other drugs, medicaments and biological substances; F17.210 Nicotine dependence, cigarettes, uncomplicated
CPT/HCPCS: 71045; 87486; 87581; 87633; 87798; 99284; U0002

== ENCOUNTER → 2021-06-12 | Outpatient (CLI) | payer MEDICAID ==
[~2021-06-12] MED LIST changes: -DELZ400C PO; +DELZ400C5 PO; -KLOR20TA42 FT; -OLAN15TA PO; +OLAN15TA13 PO; +OMEP40CA4 PO; -OMEP40CA97 PO; +POTA-141 FT
== END ==
LOC: M OUTALCOH 07:49
PROVIDERS: ATTEND Psychiatry & Neurology Psychiatry
DX: Z03.89 Encounter for observation for other suspected diseases and conditions ruled out (principal)

== ENCOUNTER 2021-06-22 15:10 | Outpatient (RCR) | payer MEDICAID | END 2021-07-20 | LOC: M OUTALCOH 15:10 | PROVIDERS: ATTEND Psychiatry & Neurology Psychiatry | DX: Z03.89 Encounter for observation for other suspected diseases and conditions ruled out (principal); F17.200 Nicotine dependence, unspecified, uncomplicated ==